=== PATIENT | female | born 1995 | race Caucasian/White ===

== ENCOUNTER 2024-05-28 17:04 | Emergency (ER) | payer OTHER ==
[2024-05-28 17:18] VITALS: RESP 18
--- NOTE | 2024-05-28 17:50 | ED ---
General Adult HPI - General Chief complaint: Needlestick/Exposure Stated complaint: [facility], Left thumb needle prick Time Seen by Provider: 05/28/24 17:44 Source: patient, RN notes reviewed Mode of arrival: ambulatory Limitations: no limitations - History of Present Illness Initial comments: 29-year-old female presenting for needlestick exposure 4 hours ago. States she works at a [email or web address] where she accidentally poked herself in the left thumb with a insulin needle. Source patient did not undergo testing. Denies symptoms. - Related Data Previous Rx's Medication Instructions Recorded Emtricitabine/Tenofovir (Tdf) 1 tab PO DAILY #28 tab 05/28/24 [Truvada 200 mg-300 mg Tablet] Raltegravir Potassium [Isentress] 400 mg PO Q12H 28 Days #56 tab 05/28/24 Allergies Allergy/AdvReac Type Severity Reaction Status Date / Time epinephrine Allergy Rash/Hives Verified 05/28/24 17:18 [From Xylocaine with Epinephrine] lidocaine Allergy Rash/Hives Verified 05/28/24 17:18 [From Xylocaine with Epinephrine] Review of Systems ROS Statement: Those systems with pertinent positive or pertinent negative responses have been documented in the HPI. ROS Other: All systems not noted in ROS Statement are negative. Past Medical History Past Medical History: No Reported History Past Surgical History: No Surgical Hx Reported Past Psychological History: ADD/ADHD, Anxiety Smoking Status: Never smoker Past Alcohol Use History: None Reported Past Drug Use History: Marijuana General Exam Limitations: no limitations General appearance: alert, in no apparent distress Head exam: Present: atraumatic, normocephalic, normal inspection Left Forearm Wrist exam: Present: normal inspection, full ROM. Absent: tenderness, swelling Hand Wrist exam: Present: normal inspection, full ROM, other (No obvious puncture wounds visible). Absent: tenderness, swelling Vascular: Present: normal capillary refill, radial pulse. Absent: vascular compromise Neurological exam: Present: alert, oriented X3 Psychiatric exam: Present: normal affect, normal mood Skin exam: Present: warm, dry, intact, normal color. Absent: rash Course Vital Signs 05/28/24 17:15 Temperature 98.6 F Pulse Rate 106 H Respiratory 18 Rate Blood Pressure 148/90 O2 Sat by Pulse 99 Oximetry Medical Decision Making - Medical Decision Making Was pt. sent in by a medical professional or institution (Dr., PA, LEATHER SPONGER, urgent care, hospital, or fci...) When possible be specific @ -No Did you speak to anyone other than the patient for history (EMS, parent, family, police, friend...)? What history was obtained from this source @ -No Did you review nursing and triage notes (agree or disagree)? Why? @ -I reviewed and agree with nursing and triage notes Were old charts reviewed (outside hosp., previous admission, EMS record, old EKG, old radiological studies, urgent care reports/EKG's, fci records)? Report findings @ -No old charts were reviewed Differential Diagnosis (chest pain, altered mental status, abdominal pain women, abdominal pain men, vaginal bleeding, weakness, fever, dyspnea, syncope, headache, dizziness, GI bleed, back pain, seizure, CVA, palpatations, mental health, musculoskeletal)? @ -Not applicable EKG interpreted by me (3pts min.). @ -None X-rays interpreted by me (1pt min.). @ -None done CT interpreted by me (1pt min.). @ -None done U/S interpreted by me (1pt. min.). @ -None done What testing was considered but not performed or refused? (CT, X-rays, U/S, labs)? Why? @ -None What meds were considered but not given or refused? Why? @ -None Did you discuss the management of the patient with other professionals (professionals i.e. BENJI Mckeon, LEATHER SPONGER, lab, RT, psych nurse, social group worker, receiving tank operator, teacher, airplane first officer, case checker)? Give summary @ -No Was smoking cessation discussed for >3mins.? @ -No Was critical care preformed (if so, how long)? @ -No Were there social determinants of health that impacted care today? How? (Homelessness, low income, unemployed, alcoholism, drug addiction, transportation, low edu. Level, literacy, decrease access to med. care, long-term, rehab)? @ -No Was there de-escalation of care discussed even if they declined (Discuss DNR or withdrawal of care, Hospice)? DNR status @ -No What co-morbidities impacted this encounter? (DM, HTN, Smoking, COPD, CAD, Cancer, CVA, ARF, Chemo, Hep., AIDS, mental health diagnosis, sleep apnea, morbid obesity)? @ -None Was patient admitted / discharged? Hospital course, mention meds given and route, prescriptions, significant lab abnormalities, going to OR and other pertinent info. @ -Discharge. This is a 29-year-old female presenting status post needlestick exposure at work. Routine labs were taken. After discussion of risks versus benefits of HIV prophylaxis medication, patient opts for medication. Appropriate return precautions and follow-up care discussed. Case was discussed with my ED attending Dr. Keita. Undiagnosed new problem with uncertain prognosis? @ -No Drug Therapy requiring intensive monitoring for toxicity (Heparin, Nitro, Insulin, Cardizem)? @ -No Were any procedures done? @ -No Diagnosis/symptom? @ -Needlestick exposure Acute, or Chronic, or Acute on Chronic? @ -Acute Uncomplicated (without systemic symptoms) or Complicated (systemic symptoms)? @ -Uncomplicated Side effects of treatment? @ -No Exacerbation, Progression, or Severe Exacerbation? @ -No Poses a threat to life or bodily function? How? (Chest pain, [place], [place], pneumonia, PE, COPD, DKA, ARF, appy, cholecystitis, CVA, Diverticulitis, Homicidal, Suicidal, threat to staff... and all critical care pts) @ -Unlikely Disposition Clinical Impression: Needle exposure Disposition: HOME SELF-CARE Condition: Stable Prescriptions: Raltegravir Potassium [Isentress] 400 mg PO Q12H 28 Days #56 tab Emtricitabine/Tenofovir (Tdf) [Truvada 200 mg-300 mg Tablet] 1 tab PO DAILY #28 tab Is patient prescribed a controlled substance at d/c from ED?: No Referrals: Dinora Marie MD [Primary Care Provider] - 1-2 days Time of Disposition: 17:50
[2024-05-28 18:58] VITALS: BP 141/89; PULSE 98; TEMP 98.4
[2024-05-29 03:21] LABS: Hepatitis B Surface Antigen Nonreactive (Nonreactive)
[2024-05-29 03:31] LABS: Hepatitis B Surface AB- Quant 3.5 mIU/mL
[2024-05-29 04:16] LABS: Hepatitis C IgG Antibody Nonreactive (Nonreactive)
[2024-05-29 05:02] LABS: HIV 2 AB Non-Reactive (Non-Reactive); HIV AB P24 Non-Reactive (Non-Reactive); HIV P24 AG Non-Reactive (Non-Reactive)
== END 2024-05-28 18:59 | disposition home or self-care (01) ==
LOC: EC 17:04
DX: S61.042A Puncture wound with foreign body of left thumb without damage to nail, initial encounter (principal); Z88.8 Allergy status to other drugs, medicaments and biological substances; W46.0XXA Contact with hypodermic needle, initial encounter; Y99.0 Civilian activity done for income or pay
CPT/HCPCS: 36415; 86704; 86706; 86803; 87340; 87390; 99283